=== PATIENT | male | born 1980 | race Two or more races ===

== ENCOUNTER 2021-10-29 21:12 | Inpatient (IN) | payer OTHER ==
[~2021-10-29] VITALS: Ht 157.5 cm; Wt 50.5 kg
--- NOTE | 2021-10-29 21:15 | NUR ---
TERESO 89 FROM [facility] WITH C/O CHEST PAIN X 1 MONTH "POINTING AT EPIGASTRIC AREA" PT A/OX4. TOLERATING O2 2LPM VIA N/C WELL WITH NO SOB; RESP EVEN AND NON LABORED. CONNECTED PT TO POX AND MONITOR. SAFETY MEASURES IN PLACE.
--- NOTE | 2021-10-29 21:33 | NUR ---
ASH WORKER AT PT'S BEDSIDE
--- NOTE | 2021-10-29 21:52 | NUR ---
R WRIST #18G S/L BLOOD COLLECRED AND SENT TO LAB
--- NOTE | 2021-10-29 22:02 | NUR ---
EMT AT PT'S BEDSIDE
[2021-10-29 22:21] LABS: BASOPHILS % (AUTO) 0.3 % (0.0-2.0); EOSINOPHILS % (AUTO) 0.4 % (0.0-6.0); HEMATOCRIT 31 % (39-51); HEMOGLOBIN 9.9 g/dL (13.5-17.5); LYMPHOCYTES # (AUTO) 0.6 K/uL (0.8-4.8); LYMPHOCYTES % (AUTO) 16.4 % (20.0-44.0); MEAN CORPUSCULAR HGB CONC 32 g/dl (31.0-36.0); MEAN CORPUSCULAR VOLUME 77 fL (80-96); MONOCYTES # (AUTO) 0.2 K/uL (0.1-1.30); MONOCYTES % (AUTO) 4.5 % (2.0-12.0); NEUTROPHILS % (AUTO) 78.4 % (43.0-81.0); PLATELET COUNT (AUTO) 575 K/uL (150-450); RED BLOOD CELL COUNT(AUTO) 3.99 MIL/uL (4.5-6.0); WHITE BLOOD COUNT (AUTO) 3.8 K/uL (4.3-11.0)
[2021-10-29] MEDS ORDERED: IV NS 0.9% 1,000 ML BAG IV ONE (22:30)
[2021-10-29] MEDS ORDERED: ASPIRIN 81 MG TAB.CHEW PO ONE (22:30)
[2021-10-29] MEDS ORDERED: ASPIRIN 81 MG TAB.CHEW ONE (22:37)
[2021-10-29 22:44] LABS: CALCIUM, SERUM 8.8 mg/dL (8.5-10.1); CARBON DIOXIDE 28 mmol/L (21-32); CHLORIDE 97 mmol/L (98-107); CREATININE 0.5 mg/dL (0.6-1.3); GLUCOSE 104 mg/dL (74-106); POTASSIUM 3.6 mmol/L (3.5-5.1); SODIUM SERUM 131 mmol/L (136-145); UREA NITROGEN, BLOOD 10 mg/dL (7-18)
--- NOTE | 2021-10-29 23:02 | NUR ---
LAC #18G S/L BLOOD CX AND COVID ANTIGEN SWAB COLLECTED AND SENT TO LAB
--- NOTE | 2021-10-29 23:03 | NUR ---
PT TAKEN TO CT VIA HI
[2021-10-29] MEDS ORDERED: IV NS 0.9% 250 ML IV ONE (23:10)
[2021-10-29] MEDS ORDERED: IOHEXOL-350 100 ML VIAL IV ONE (23:10)
[2021-10-29] MEDS ORDERED: CT SWABBABLE VALVE TRANS SET 1 EA INFUS.SET MC ONE (23:10)
--- NOTE | 2021-10-29 23:27 | NUR ---
BACK FROM CT
--- NOTE | 2021-10-29 23:59 | NUR ---
SACRAL WOUND CX COLLECTED AND SENT. DR. ORDONEZ ASSESSED WOUND. REPOSITIONED PT.
[2021-10-30] VITALS (90 sets, daily range): BP systolic 86–112; BP diastolic 52–81
[2021-10-30] MEDS ORDERED: NOREPINEPHRINE 8 MG in IV NS 0.9% 250 ML IV ONE ×2
[2021-10-30] MEDS ORDERED: NOREPINEPHRINE 4 MG/4 ML AMPUL IV ONE (00:05)
--- NOTE | 2021-10-30 00:20 | NUR ---
LEVOPHED DRIP INITIATED LEVOPHED AT 0.1MCG/KG/MIN. BP 88/60. HR 60. WILL REASSESS BP
[2021-10-30 00:25] LABS: ALANINE AMINOTRANSFERASE 40 U/L (12-78); ALBUMIN 1.8 g/dL (3.4-5.0); ALKALINE PHOSPHATASE 353 U/L (46-116); ASPARTATE AMINOTRANSFERASE 23 U/L (15-37); BILIRUBIN,DIRECT 0.1 mg/dL (0.0-0.2); BILIRUBIN,TOTAL 0.2 mg/dL (0.2-1.0); TOTAL PROTEIN, SERUM 7.5 g/dL (6.4-8.2)
--- NOTE | 2021-10-30 00:28 | NUR ---
BP CHECK: 99/70. HR 101 WILL CONT LEVOPHED AT 0.1 MCG/KG/MIN
--- NOTE | 2021-10-30 00:30 | NUR ---
ICU 255
--- NOTE | 2021-10-30 00:35 | NUR ---
REPORT GIVEN TO FERNANDEZ SALES AGENT FINANCIAL REPORT SERVICE FOR [facility]
--- NOTE | 2021-10-30 00:36 | NUR ---
GARCÍA JACKSON AT PT'S BEDSIDE
[2021-10-30] MEDS ORDERED: MIDO10TA PO (00:45)
[2021-10-30] MEDS ORDERED: ZINC220C6 PO (00:45)
[2021-10-30] MEDS ORDERED: FURO20TA4 PO (00:45)
[2021-10-30] MEDS ORDERED: FERR325T23 PO (00:45)
[2021-10-30] MEDS ORDERED: ASCO500T21 PO (00:45)
[2021-10-30] MEDS ORDERED: NYST15CR TP (00:45)
[2021-10-30] MEDS ORDERED: METO-357 PO (00:45)
[2021-10-30] MEDS ORDERED: COLL30OI TP (00:45)
[2021-10-30] MEDS ORDERED: ZINC220T3 PO (00:45)
--- NOTE | 2021-10-30 00:50 | NUR ---
LARGE INCONTINENT BM NOTED. URINE OUTPUT 200ML VIA URINAL. PT KEPT CLEAN AND DRY. WOUND CARE DONE TO SACRAL WOUND. REPOSITIONED PT.
--- NOTE | 2021-10-30 00:55 | NUR ---
SENIOR FACILITIES MANAGER AT PT'S BEDSIDE
[2021-10-30] MEDS ORDERED: CEFTRIAXONE 1GM BAG (ER ONLY) 1 GM/50 ML PIGGYBACK IV ONE (01:00)
[2021-10-30] MEDS ORDERED: ONDANSETRON HCL/PF 4 MG/2 ML VIAL IVP PRN (01:00)
[2021-10-30] MEDS ORDERED: MAGNESIUM HYDROXIDE 30 ML UDC PO PRN (01:00)
[2021-10-30] MEDS ORDERED: MAG HYDROX/AL HYDROX/SIMETH 30 ML UDC PO PRN (01:00)
[2021-10-30] MEDS ORDERED: VANCOMYCIN 1 GM in IV D5W 250 ML IV ONE (01:00)
[2021-10-30] MEDS ORDERED: Z GUARD REMEDY 4 OZ OINT TP PRN (01:00)
[2021-10-30] MEDS ORDERED: ACETAMINOPHEN 325 MG TABLET PO PRN (01:00)
[2021-10-30] MEDS ORDERED: NYSTATIN CREAM 15 GM TUBE TP SCH (01:00)
[2021-10-30] MEDS ORDERED: ZOLPIDEM TARTRATE 5 MG TABLET PO PRN (01:00)
[2021-10-30] MEDS ORDERED: MEROPENEM 1 G VIAL IV ONE (01:14)
[2021-10-30] MEDS ORDERED: CEFTRIAXONE 1GM BAG (ER ONLY) 50 ML IV ONE (01:29)
[2021-10-30] MEDS ORDERED: VANCOMYCIN 1 GM VIAL ONE (01:29)
[2021-10-30] MEDS ORDERED: IV NS 0.9% 250 ML IV PRN (01:30)
--- NOTE | 2021-10-30 01:30 | NUR ---
MRSA SWAB COLLECTED AND SENT TO LAB. PATIENT'S BELONGINGS LIST DONE.
[2021-10-30] MEDS: MEROPENEM 1 G in IV NS 0.9% 100 ML IV SCH ×4 (01:42→20:56)
--- NOTE | 2021-10-30 01:45 | NUR ---
PT STRONGLY REFUSED TO CHANGE INTO GOWN. TRANSFERRED PT TO ICU VIA ACLS PROTOCOL WITH LEVOPHED TRIP # 0.1MCG/KG/MIN. ALL BELONGINGS WITH PT. ENDORSED FLEET MANAGER TO ADMIN VANCOMYCIN AND GIVEN TO FLEET MANAGER
[2021-10-30] MEDS ORDERED: PANT40TA49 PO (01:53)
[2021-10-30] MEDS ORDERED: NYST5ORA MM (01:53)
[2021-10-30] MEDS ORDERED: [UNRECOGNIZED DRUG - CODE] PO (01:53)
[2021-10-30] MEDS ORDERED: HYDR200T4 PO (01:53)
[2021-10-30] MEDS ORDERED: SODI1TAB PO (01:53)
[2021-10-30] MEDS ORDERED: LEVO100T9 PO (01:53)
[2021-10-30] MEDS ORDERED: HYDROXYCHLOROQUINE 200 MG TABLET PO PRN (02:00)
[2021-10-30] MEDS: NOREPINEPHRINE 8 MG in IV NS 0.9% 242 ML IV PRN ×2 (02:02→20:57)
[2021-10-30] MEDS: HYDROCORTISONE SOD SUCCINATE 100 MG/2 ML VIAL IV SCH ×3 (05:31→20:57)
[2021-10-30] MEDS: LEVOTHYROXINE SODIUM 100 MCG TABLET PO SCH (07:48)
--- NOTE | 2021-10-30 08:00 | NUR ---
rn notes received patient resting in the bed on O2-2LNC. patient a/ox4, refused pain. HR-120. due medication administered , patient on Levophed 0.1 mcg/kg/min. Due medication administered , patient using urinal, also need minimal daily care assist. Assist turn and reposition q 2 hr. patient has sacral wound with tunnelling, seen patient via wound PA, patient sign consent form for debridement. call light within to reach. will follow up.
[2021-10-30] MEDS ORDERED: FERROUS SULFATE (325 MG) 325 MG/TAB TABLET PO SCH (09:00)
[2021-10-30] MEDS ORDERED: METOPROLOL SUCCINATE 50 MG TAB.SR.24H PO SCH (09:00)
[2021-10-30] MEDS ORDERED: MIDODRINE HCL (5MG) 5 MG TABLET PO SCH (09:00)
[2021-10-30] MEDS: THERAHONEY GEL 1.5 OZ TUBE TP SCH (09:16)
[2021-10-30] MEDS: NYSTATIN (PYXIS) 500,000 UNIT/5 ML ORAL.SUSP PO SCH ×5 (09:19→20:57)
[2021-10-30] MEDS: PANTOPRAZOLE 40 MG TABLET.DR PO SCH (09:19)
[2021-10-30] MEDS: ASCORBIC ACID 500 MG TABLET PO SCH (09:19)
[2021-10-30] MEDS: ASPIRIN 81 MG TAB.CHEW PO SCH (09:20)
[2021-10-30 09:47] LABS: IRON, SERUM 10 ug/dl (50-175); TOTAL IRON BINDING CAPACITY 168 ug/dl (250-450)
[2021-10-30] MEDS ORDERED: ACET-868 PO (10:18)
[2021-10-30] MEDS ORDERED: CHOL100043 PO (10:18)
[2021-10-30] MEDS ORDERED: MULT-24 PO (10:18)
[2021-10-30] MEDS ORDERED: MAGN400O6 PO (10:18)
[2021-10-30] MEDS ORDERED: AMIN30LI2 PO (10:18)
[2021-10-30] MEDS ORDERED: SODI1TAB66 PO (10:18)
[2021-10-30] MEDS ORDERED: CALC500T52 PO (10:18)
[2021-10-30] MEDS ORDERED: ACET-2605 PO (10:18)
[2021-10-30] MEDS ORDERED: CYAN100096 PO (10:18)
[2021-10-30] MEDS ORDERED: HYDR-4303 PO (10:18)
--- NOTE | 2021-10-30 12:00 | NUR ---
rn notes patient tolerated lunch self well, per case management patient will transfer to the [facility].
[2021-10-30 12:08] LABS: FERRITIN 413 ng/mL (8-388)
[2021-10-30] MEDS: HYDROXYCHLOROQUINE 200 MG TABLET PO SCH (12:09)
[2021-10-30] MEDS: MIDODRINE HCL (5MG) 5 MG TABLET PO SCH ×2 (12:11→16:26)
[2021-10-30] MEDS ORDERED: MEROPENEM 1 G in IV NS 0.9% 100 ML IV SCH (13:00)
[2021-10-30] MEDS: VANCOMYCIN 0.75 GM in IV D5W 250 ML IV SCH (13:37)
--- NOTE | 2021-10-30 18:20 | NUR ---
RN NOTES PM CARE DONE PATIENT REFUSED PAIN, DUE MEDICATION ADMINISTERED. TITRATED LEVOPHED INFUSION @0.02MCG/KG/MIN, BP 92/67. PATIENT ABLE TO TURN AND REPOSTION SELF IN THE BED. CALL LIGHT WITHIN TO REACH. ENDORSED ONCOMING NURSE [facility].
[2021-10-31] VITALS (77 sets, daily range): BP systolic 88–129; BP diastolic 46–79
[2021-10-31] MEDS: VANCOMYCIN 0.75 GM in IV D5W 250 ML IV SCH ×2 (02:05→14:50)
[2021-10-31 04:17] LABS: BASOPHILS % (AUTO) 0.2 % (0.0-2.0); EOSINOPHILS % (AUTO) 0.1 % (0.0-6.0); HEMATOCRIT 28 % (39-51); HEMOGLOBIN 9.1 g/dL (13.5-17.5); LYMPHOCYTES # (AUTO) 0.4 K/uL (0.8-4.8); LYMPHOCYTES % (AUTO) 15.2 % (20.0-44.0); MEAN CORPUSCULAR HGB CONC 32 g/dl (31.0-36.0); MEAN CORPUSCULAR VOLUME 77 fL (80-96); MONOCYTES # (AUTO) 0.2 K/uL (0.1-1.30); NEUTROPHILS # (AUTO) 2.1 K/uL (1.8-8.9); NEUTROPHILS % (AUTO) 75.5 % (43.0-81.0); PLATELET COUNT (AUTO) 595 K/uL (150-450); RED BLOOD CELL COUNT(AUTO) 3.71 MIL/uL (4.5-6.0); WHITE BLOOD COUNT (AUTO) 2.7 K/uL (4.3-11.0)
[2021-10-31 04:26] LABS: CALCIUM, SERUM 8.1 mg/dL (8.5-10.1); CREATININE 0.6 mg/dL (0.6-1.3); MAGNESIUM 1.8 mg/dL (1.8-2.4); PHOSPHORUS 3.1 mg/dL (2.5-4.9); POTASSIUM 3.4 mmol/L (3.5-5.1)
[2021-10-31] MEDS: HYDROCORTISONE SOD SUCCINATE 100 MG/2 ML VIAL IV SCH ×3 (04:56→21:47)
[2021-10-31] MEDS: MEROPENEM 1 G in IV NS 0.9% 100 ML IV SCH ×3 (04:56→21:47)
--- NOTE | 2021-10-31 08:00 | NUR ---
RN NOTES received patient A/A/O X4, O2-2LNC. patient a/ox4, HR-91. due medication administered, Due medication administered , patient using urinal, also need minimal daily care assist. Assist turn and reposition q 2 hr. patient has sacral wound with tunnelling, seen patient via wound, and hospitalist patient will transfer to the [facility] per insurance request. case management aware of. call light within to reach. will follow up.
[2021-10-31] MEDS: HYDROXYCHLOROQUINE 200 MG TABLET PO SCH (09:50)
[2021-10-31] MEDS: MIDODRINE HCL (5MG) 5 MG TABLET PO SCH ×3 (09:50→17:03)
[2021-10-31] MEDS: ASPIRIN 81 MG TAB.CHEW PO SCH (09:50)
[2021-10-31] MEDS: NYSTATIN (PYXIS) 500,000 UNIT/5 ML ORAL.SUSP PO SCH ×4 (09:50→21:47)
[2021-10-31] MEDS: POTASSIUM CHLORIDE 20 MEQ TAB.PRT.SR PO SCH ×2 (09:51→10:00)
[2021-10-31] MEDS: ASCORBIC ACID 500 MG TABLET PO SCH (09:51)
[2021-10-31] MEDS: PANTOPRAZOLE 40 MG TABLET.DR PO SCH (09:51)
[2021-10-31] MEDS: THERAHONEY GEL 1.5 OZ TUBE TP SCH (09:52)
[2021-10-31] MEDS: LEVOTHYROXINE SODIUM 100 MCG TABLET PO SCH (09:52)
--- NOTE | 2021-10-31 14:12 | NUR ---
RN NOTES COLLECTED SPECIMEN FROM SACRAL WOUND. LAB NOTIFIED.
--- NOTE | 2021-10-31 14:30 | NUR ---
rn notes patient was complaining of chest pain, and per patient also increased sputum as well, keep spitting out. notified Dr Ba and get TO order STAT EKG, CHEST X-RAY tomorrow, because of patient was admitted with Dx of chest pain , also STAT troponin level. order taken and carried out.
[2021-10-31] MEDS: SOD FERRIC GLUC 125 MG in IV NS 0.9% 100 ML IV SCH (15:13)
--- NOTE | 2021-10-31 15:38 | NUR ---
rn notes EKG, AND TROPONIN LEVEL RESULTS NOTIFIED HOSPITALIST Dr JORGE, AND Dr CASTRO SALES AGENT [employer]. WAITING FOR RESPOND.
--- NOTE | 2021-10-31 15:41 | NUR ---
RN NOTES PATIENT MORE STABLE AT THIS TIME , CHEST PAIN GETTING BETTER, BP 94/65, P-94. GET ORDER PER TOYS AND GAMES HAND FINISHER FOLLOW UP. ORDER TAKEN AND CARRIED OUT.
--- NOTE | 2021-10-31 17:00 | NUR ---
rn notes patient stable refused chest pain, tolerated dinner 100%, due medication administered. new order is transfer patient to the tele unit. waiting available bed opening.
--- NOTE | 2021-10-31 18:24 | NUR ---
rn notes Get call from [facility] patient mrsa of nares previous specimen was contaminated. recollected new mrsa on narea specimen, lab notified to pickers material handlers.
--- NOTE | 2021-10-31 19:35 | NUR ---
ICU/PRIMER EXPEDITOR AND DRIER RECEIVED REPORT FROM DAY NURSE. SEE FLOWSHEET FOR ASSESSMENT, PT HAS SKIN ISSUES WHICH IS ADDRESSED ON THE FLOWSHEET, ALONG WITH THE INTERVENTIONS TO EACH. CALL LIGHT WITHIN REACH, NO DISTRESS SEEN AT THIS TIME. WILL CONTINUE TO MO MONITOR THIS PT.
--- NOTE | 2021-10-31 19:45 | NUR ---
ICU/BUYER PLANNER REPORT GIVEN TO KEVAN HINOJOSA ON 3WEST FOR PT TO GO INTO ROOM 328-1.
[2021-10-31] MEDS ORDERED: ACETAMINOPHEN 325 MG TABLET PO PRN (20:30)
[2021-10-31] MEDS ORDERED: MAGNESIUM HYDROXIDE 30 ML UDC PO PRN (20:30)
[2021-10-31] MEDS ORDERED: ACETAMINOPHEN ES 500 MG TABLET PO PRN (20:30)
--- NOTE | 2021-10-31 20:55 | NUR ---
ICU/PARTS EXPEDITER PT WAS TRANSFERED TO ROOM 328-1, 3-W NURSE KEVAN HINOJOSA CAME DOWN TO GET PT. PT WAS SENT ON MONITOR.
--- NOTE | 2021-10-31 21:03 | NUR ---
TRANSFER NOTES PT TRANSFERRED @2100 TO 328-1. HEMODYNAMICALLY STABLE. WILL CONTINUE TO MONITOR.
[2021-11-01] VITALS: BP 92/68
[2021-11-01] MEDS: VANCOMYCIN 0.75 GM in IV D5W 250 ML IV SCH ×3 (01:28→20:24)
[2021-11-01] MEDS: MEROPENEM 1 G in IV NS 0.9% 100 ML IV SCH ×3 (05:44→21:35)
[2021-11-01] MEDS: HYDROCORTISONE SOD SUCCINATE 100 MG/2 ML VIAL IV SCH ×3 (05:44→21:35)
[2021-11-01 06:37] LABS: BASOPHILS % (AUTO) 0.2 % (0.0-2.0); HEMATOCRIT 29 % (39-51); HEMOGLOBIN 9.3 g/dL (13.5-17.5); LYMPHOCYTES # (AUTO) 0.6 K/uL (0.8-4.8); LYMPHOCYTES % (AUTO) 34.8 % (20.0-44.0); MEAN CORPUSCULAR HGB CONC 32 g/dl (31.0-36.0); MEAN CORPUSCULAR VOLUME 77 fL (80-96); MONOCYTES # (AUTO) 0.2 K/uL (0.1-1.30); MONOCYTES % (AUTO) 9.7 % (2.0-12.0); NEUTROPHILS % (AUTO) 55.3 % (43.0-81.0); PLATELET COUNT (AUTO) 581 K/uL (150-450); RED BLOOD CELL COUNT(AUTO) 3.73 MIL/uL (4.5-6.0)
[2021-11-01 06:48] LABS: WHITE BLOOD COUNT (AUTO) 1.8 K/uL (4.3-11.0)
--- NOTE | 2021-11-01 06:49 | NUR ---
RN NOTES RECEIVED CRITICAL LAB VALUE FOR WBC OF 1.8. WILL ENDORSE TO DAYSHIFT RN.
[2021-11-01 07:19] LABS: CALCIUM, SERUM 8.2 mg/dL (8.5-10.1); CREATININE 0.5 mg/dL (0.6-1.3); PHOSPHORUS 2.6 mg/dL (2.5-4.9); POTASSIUM 3.9 mmol/L (3.5-5.1)
--- NOTE | 2021-11-01 07:54 | NUR ---
RN CLOSING NOTES REPORT GIVEN TO DAYSHIFT RN. PT STABLE. NO DISTRESS NOTED.
[2021-11-01 08:00] VITALS: BP 96/69
--- NOTE | 2021-11-01 08:00 | NUR ---
RN OPENING NOTE PATIENT RECEIVED IN BED, AO X 4, ABLE TO RESPONDS ALL STIMULI. IN NO ACUTE DISTRESS NOTED. RESPIRATORY EVEN AND UNLABORED ON OXYGEN AT 3Ls. SKIN IS WARM TO TOUCH, KEEP CLEAN/DRY. KEPT ELEVATED HOB FOR ENSURE AIRWAY AND ASPIRATION PRECAUTION, ALSO LOWEST POSITION OF THE BED, S/R UP X 3, BED ALARM IS ON AT ALL THE TIMES. ALL SAFETY PRECAUTION APPLIED. CALL LIGHT WITHIN REACH, WILL CONTINUE TO MONITOR.
[2021-11-01] MEDS: LEVOTHYROXINE SODIUM 100 MCG TABLET PO SCH (08:27)
[2021-11-01] MEDS: NYSTATIN (PYXIS) 500,000 UNIT/5 ML ORAL.SUSP PO SCH ×4 (08:29→21:35)
[2021-11-01] MEDS: MULTIVITAMINS,THERAGRAN 1 UDTAB TABLET PO SCH (08:29)
[2021-11-01] MEDS: ASCORBIC ACID 500 MG TABLET PO SCH (08:29)
[2021-11-01 08:30] LABS: LYMPHOCYTES % (MANUAL) 31 % (16-48); NEUTROPHILS % (MANUAL) 62 (42-76)
--- NOTE | 2021-11-01 08:30 | NUR ---
PATIENT NOTICED WBC 1.8 CL THIS MORNING, INFORMED MD AND FILL IT OUT ON INTERVENTION. WILL CONTINUE TO MONITOR.
[2021-11-01 08:31] LABS: BASOPHILS % (MANUAL) 0 % (0.0-2.0); EOSINOPHILS % (MANUAL) 0 % (0-4); MONOCYTES % (MANUAL) 7 % (0-11.0)
[2021-11-01] MEDS: FUROSEMIDE 20 MG TABLET PO SCH (08:31)
[2021-11-01] MEDS: ASPIRIN 81 MG TAB.CHEW PO SCH (08:31)
[2021-11-01] MEDS: MIDODRINE HCL (5MG) 5 MG TABLET PO SCH ×3 (08:31→16:34)
[2021-11-01] MEDS: CALCIUM CARBONATE (1250) 500 MG TABLET PO SCH (08:31)
[2021-11-01] MEDS: THERAHONEY GEL 1.5 OZ TUBE TP SCH (08:33)
[2021-11-01] MEDS: PANTOPRAZOLE 40 MG TABLET.DR PO SCH (08:36)
[2021-11-01] MEDS: HYDROXYCHLOROQUINE 200 MG TABLET PO SCH (08:36)
--- NOTE | 2021-11-01 10:30 | NUR ---
PATIENT REFUSED THORACENTESIS, INFORMED DR. POTTS.
[2021-11-01 12:00] VITALS: BP 102/77
[2021-11-01] MEDS: SOD FERRIC GLUC 125 MG in IV NS 0.9% 100 ML IV SCH (16:16)
[2021-11-01 17:18] VITALS: BP 102/70
--- NOTE | 2021-11-01 18:39 | NUR ---
RN CLOSING NOTE PATIENT IN BED RESTING. IN NO ACUTE DISTRESS NOTED. RESPIRATORY EVEN AND UNLABORED ON OXYGEN AT 2Ls. SKIN IS WARM TO TOUCH, KEEP CLEAN/DRY. NO S/S OF ADVERSE REACTION OBSERVED FROM IV ABX. ENCOURAGED ORAL FLUID INTAKE TOLERATED. KEPT ELEVATED HOB FOR ENSURE AIRWAY AND ASPIRATION PRECAUTION, BED IN LOWEST POSITION AND LOCK. BED ALARM IS ON AT ALL THE TIMES. ALL SAFETY MEASURED IN PLACED. CALL LIGHT WITHIN REACH, WILL ENDORSED TO NEXT SHIFT.
--- NOTE | 2021-11-01 19:30 | NUR ---
RN OPENING NOTE RECEIVED PATIENT IN BED, A/OX4, NO S/S OF ACUTE DISTRESS NOTED. 02 VIA NC @2L, PATIENT IS ON TELE MONITOR BUT WE REMOVED IT FOR LIFE VEST MEASUREMENTS. ENCOURAGED ORAL FLUID INTAKE TOLERATED. KEPT ELEVATED HOB FOR ENSURE AIRWAY AND ASPIRATION PRECAUTION, BED IN LOWEST POSITION AND LOCK. BED ALARM IS ON AT ALL THE TIMES. ALL SAFETY MEASURED IN PLACED. CALL LIGHT WITHIN REACH, WILL ENDORSED TO NEXT SHIFT.
[2021-11-01 20:00] VITALS: BP 94/67
[2021-11-02] VITALS: BP 104/80
[2021-11-02 04:00] VITALS: BP 93/63
[2021-11-02] MEDS: VANCOMYCIN 0.75 GM in IV D5W 250 ML IV SCH ×3 (04:26→21:41)
[2021-11-02] MEDS: MEROPENEM 1 G in IV NS 0.9% 100 ML IV SCH ×3 (05:27→20:58)
[2021-11-02] MEDS: HYDROCORTISONE SOD SUCCINATE 100 MG/2 ML VIAL IV SCH ×3 (05:28→20:58)
[2021-11-02] MEDS: LEVOTHYROXINE SODIUM 100 MCG TABLET PO SCH (06:41)
--- NOTE | 2021-11-02 06:49 | NUR ---
RN CLOSING NOTE PATIENT IS RESTING IN BED, A/OX4, O2 2L VIA NC, TOLERATING WELL. NO S/S OF RESP DISTRESS NOTED, TELE MONITOR READING SR HR 95, KEPT HOB ELEVATED FOR ASPIRATION PRECAUTION, ALL DUE MEDS GIVEN, PATEINT ABLE TO MAKE NEEDS KNOWN, BED IN LOWEST POSITION AND LOCK. BED ALARM IS ON AT ALL THE TIMES. ALL SAFETY MEASURED IN PLACED. CALL LIGHT WITHIN REACH, WILL ENDORSED TO MORNING SHIFT.
[2021-11-02 06:51] LABS: BASOPHILS % (AUTO) 0.3 % (0.0-2.0); HEMATOCRIT 29 % (39-51); HEMOGLOBIN 9.2 g/dL (13.5-17.5); LYMPHOCYTES # (AUTO) 0.6 K/uL (0.8-4.8); LYMPHOCYTES % (AUTO) 26.9 % (20.0-44.0); MEAN CORPUSCULAR HGB CONC 32 g/dl (31.0-36.0); MEAN CORPUSCULAR VOLUME 78 fL (80-96); MONOCYTES # (AUTO) 0.3 K/uL (0.1-1.30); MONOCYTES % (AUTO) 14.5 % (2.0-12.0); NEUTROPHILS # (AUTO) 1.3 K/uL (1.8-8.9); NEUTROPHILS % (AUTO) 58.3 % (43.0-81.0); PLATELET COUNT (AUTO) 594 K/uL (150-450); RED BLOOD CELL COUNT(AUTO) 3.74 MIL/uL (4.5-6.0); WHITE BLOOD COUNT (AUTO) 2.2 K/uL (4.3-11.0)
[2021-11-02 07:29] LABS: CREATININE 0.5 mg/dL (0.6-1.3); PHOSPHORUS 2.1 mg/dL (2.5-4.9); POTASSIUM 3.1 mmol/L (3.5-5.1)
--- NOTE | 2021-11-02 08:00 | NUR ---
RN OPENING NOTE PATIENT RECEIVED IN BED, AO X 4, ABLE TO RESPONDS ALL STIMULI. IN NO ACUTE DISTRESS NOTED. RESPIRATORY EVEN AND UNLABORED ON OXYGEN AT 2Ls. SKIN IS WARM TO TOUCH, KEEP CLEAN/DRY. KEPT ELEVATED HOB FOR ENSURE AIRWAY AND ASPIRATION PRECAUTION, ALSO LOWEST POSITION OF THE BED, S/R UP X 3, BED ALARM IS ON AT ALL THE TIMES. ALL SAFETY PRECAUTION APPLIED. CALL LIGHT WITHIN REACH, WILL CONTINUE TO MONITOR.
[2021-11-02] MEDS: ASPIRIN 81 MG TAB.CHEW PO SCH (09:51)
[2021-11-02] MEDS: ASCORBIC ACID 500 MG TABLET PO SCH (09:52)
[2021-11-02] MEDS: CALCIUM CARBONATE (1250) 500 MG TABLET PO SCH (09:52)
[2021-11-02] MEDS: MIDODRINE HCL (5MG) 5 MG TABLET PO SCH ×3 (09:52→17:11)
[2021-11-02] MEDS: PANTOPRAZOLE 40 MG TABLET.DR PO SCH (09:52)
[2021-11-02] MEDS: FUROSEMIDE 20 MG TABLET PO SCH (09:52)
[2021-11-02] MEDS: NYSTATIN (PYXIS) 500,000 UNIT/5 ML ORAL.SUSP PO SCH ×4 (09:52→20:58)
[2021-11-02] MEDS: MULTIVITAMINS,THERAGRAN 1 UDTAB TABLET PO SCH (09:52)
[2021-11-02] MEDS: THERAHONEY GEL 1.5 OZ TUBE TP SCH (09:54)
[2021-11-02] MEDS: HYDROXYCHLOROQUINE 200 MG TABLET PO SCH (09:56)
[2021-11-02] MEDS: POTASSIUM CHLORIDE 20 MEQ TAB.PRT.SR PO SCH ×2 (10:01→11:31)
[2021-11-02] MEDS ORDERED: K PHOS NEUTRAL 250 MG TABLET PO ONE (11:00)
[2021-11-02] MEDS: SOD FERRIC GLUC 125 MG in IV NS 0.9% 100 ML IV SCH (15:38)
--- NOTE | 2021-11-02 16:40 | NUR ---
RECEIVED A REPORT THAT PATIENT POSITIVE MRSA BY [facility]. INFORMED MD AND NEW ORDER; APPLY BACTROBAN ON BOTH NARES Q 12. WILL CONTINUE TO MONITOR.
--- NOTE | 2021-11-02 18:40 | NUR ---
RN CLOSING NOTE PATIENT IN BED RESTING. S/P THORACENTESIS, 250 CC OUT PUT, IN NO ACUTE DISTRESS NOTED. RESPIRATORY EVEN AND UNLABORED ON OXYGEN AT 2Ls. SKIN IS WARM TO TOUCH, KEEP CLEAN/DRY. NO S/S OF ADVERSE REACTION OBSERVED FROM IV ABX. ENCOURAGED ORAL FLUID INTAKE TOLERATED. KEPT ELEVATED HOB FOR ENSURE AIRWAY AND ASPIRATION PRECAUTION, BED IN LOWEST POSITION AND LOCK. BED ALARM IS ON AT ALL THE TIMES. ALL SAFETY MEASURED IN PLACED. CALL LIGHT WITHIN REACH, WILL ENDORSED TO NEXT SHIFT.
--- NOTE | 2021-11-02 19:26 | NUR ---
RN OPENING NOTE PATIENT IN BED RESTING. S/P THORACENTESIS, 250 CC OUT PUT, IN NO ACUTE DISTRESS NOTED. RESPIRATORY EVEN AND UNLABORED ON OXYGEN AT 2Ls. SKIN IS WARM TO TOUCH, KEEP CLEAN/DRY. ENCOURAGED ORAL FLUID INTAKE TOLERATED. KEPT ELEVATED HOB FOR ENSURE AIRWAY AND ASPIRATION PRECAUTION, BED IN LOWEST POSITION AND LOCK. PT WITH LIFE VEST ON AT THIS TIME. BED ALARM IS ON AT ALL THE TIMES. ALL SAFETY MEASURED IN PLACED. CALL LIGHT WITHIN REACH, WILL CONTINUE TO MONITOR.
[2021-11-02 20:29] VITALS: BP 116/80
[2021-11-02 20:36] VITALS: BP 116/80
[2021-11-02] MEDS: MUPIROCIN OINT 2% 22 GM TUBE NS SCH (21:33)
--- NOTE | 2021-11-02 21:33 | NUR ---
LAB INSTRUCTOR NOTES VANCO LEVEL IS 10 OKAY TO GIVE VANCO DOSE SCHEDULED. WILL CONTINUE TO MONITOR.
[2021-11-03 00:05] VITALS: BP 104/70
[2021-11-03 04:00] VITALS: BP 109/72
[2021-11-03] MEDS: VANCOMYCIN 0.75 GM in IV D5W 250 ML IV SCH ×3 (04:04→20:54)
[2021-11-03] MEDS: HYDROCORTISONE SOD SUCCINATE 100 MG/2 ML VIAL IV SCH ×3 (04:04→20:55)
[2021-11-03] MEDS: MEROPENEM 1 G in IV NS 0.9% 100 ML IV SCH ×3 (05:00→21:10)
--- NOTE | 2021-11-03 06:38 | NUR ---
RN OPENING NOTE PATIENT IN BED RESTING. S/P THORACENTESIS, 250 CC OUT PUT, IN NO ACUTE DISTRESS NOTED. RESPIRATORY EVEN AND UNLABORED ON OXYGEN AT 2Ls. SKIN IS WARM TO TOUCH, KEEP CLEAN/DRY. ENCOURAGED ORAL FLUID INTAKE TOLERATED. KEPT ELEVATED HOB FOR ENSURE AIRWAY AND ASPIRATION PRECAUTION, BED IN LOWEST POSITION AND LOCK. PT WITH LIFE VEST ON AT THIS TIME. BED ALARM IS ON AT ALL THE TIMES. ALL SAFETY MEASURED IN PLACED. CALL LIGHT WITHIN REACH, WILL CONTINUE TO MONITOR. Addendum: 11/03/21 at 0639 by MARLEY VANG RN CLOSING NOTE
[2021-11-03 07:15] LABS: BASOPHILS % (AUTO) 0.1 % (0.0-2.0); HEMATOCRIT 30 % (39-51); HEMOGLOBIN 9.7 g/dL (13.5-17.5); LYMPHOCYTES # (AUTO) 0.6 K/uL (0.8-4.8); LYMPHOCYTES % (AUTO) 7.4 % (20.0-44.0); MEAN CORPUSCULAR HGB CONC 33 g/dl (31.0-36.0); MEAN CORPUSCULAR VOLUME 77 fL (80-96); MONOCYTES # (AUTO) 0.4 K/uL (0.1-1.30); MONOCYTES % (AUTO) 5.6 % (2.0-12.0); NEUTROPHILS # (AUTO) 6.5 K/uL (1.8-8.9); NEUTROPHILS % (AUTO) 86.9 % (43.0-81.0); PLATELET COUNT (AUTO) 612 K/uL (150-450); RED BLOOD CELL COUNT(AUTO) 3.85 MIL/uL (4.5-6.0); WHITE BLOOD COUNT (AUTO) 7.5 K/uL (4.3-11.0)
--- NOTE | 2021-11-03 07:24 | NUR ---
RN OPENING NOTE RECEIVED PATIENT IN BED, A/OX4, NO SIGNS OF ACUTE DISTRESS NOTED. DENIES ANY PAIN AT THIS TIME. ON 02 VIA NC @2LPM, NO SOB NOTED. WITH PICC LINE ACCESS ON RIGHT UPPER ARM, INTACT AND PATENT. PATIENT IS ON TELE MONITOR SHOWING SR HR @99. SAFETY MEASURE IN PLACE, BED IN LOWEST POSITION AND LOCKED POSITION. BED ALARM ON AT ALL THE TIMES. SIDE RAILS UP, CALL LIGHT PLACED WITHIN EASY REACH. ISOLATION PRECAUTIONS OBSERVED. WILL CONTINUE TO MONITOR PATIENT.
[2021-11-03 07:36] LABS: CREATININE 0.4 mg/dL (0.6-1.3); MAGNESIUM 2.5 mg/dL (1.8-2.4); PHOSPHORUS 2.4 mg/dL (2.5-4.9); POTASSIUM 3.1 mmol/L (3.5-5.1)
[2021-11-03 08:00] VITALS: BP 110/74
[2021-11-03] MEDS: LEVOTHYROXINE SODIUM 100 MCG TABLET PO SCH (08:19)
[2021-11-03] MEDS: NYSTATIN (PYXIS) 500,000 UNIT/5 ML ORAL.SUSP PO SCH ×4 (08:58→20:54)
[2021-11-03] MEDS: ASPIRIN 81 MG TAB.CHEW PO SCH (08:58)
[2021-11-03] MEDS: MIDODRINE HCL (5MG) 5 MG TABLET PO SCH ×3 (08:59→16:22)
[2021-11-03] MEDS: CALCIUM CARBONATE (1250) 500 MG TABLET PO SCH (08:59)
[2021-11-03] MEDS: MULTIVITAMINS,THERAGRAN 1 UDTAB TABLET PO SCH (08:59)
[2021-11-03] MEDS: PANTOPRAZOLE 40 MG TABLET.DR PO SCH (08:59)
[2021-11-03] MEDS: FUROSEMIDE 20 MG TABLET PO SCH (08:59)
[2021-11-03] MEDS: ASCORBIC ACID 500 MG TABLET PO SCH (08:59)
[2021-11-03] MEDS: THERAHONEY GEL 1.5 OZ TUBE TP SCH (09:01)
[2021-11-03] MEDS: MUPIROCIN OINT 2% 22 GM TUBE NS SCH ×2 (09:01→20:57)
--- NOTE | 2021-11-03 09:03 | NUR ---
PATIENT ON 2 L NC AWAKE AND ORIENTED. PATIENT REMAIN STABLE W/O DISTRESS Addendum: 11/03/21 at 0903 by CASH HAYS RT Amended: Links added.
[2021-11-03] MEDS: HYDROXYCHLOROQUINE 200 MG TABLET PO SCH (10:36)
[2021-11-03] MEDS ORDERED: POTASSIUM CHLORIDE 20 MEQ TAB.PRT.SR PO SCH (11:00)
[2021-11-03] MEDS: SOD FERRIC GLUC 125 MG in IV NS 0.9% 100 ML IV SCH (14:52)
[2021-11-03 16:00] VITALS: BP 107/77
[2021-11-03] MEDS ORDERED: K PHOS NEUTRAL 250 MG TABLET PO ONE (16:00)
--- NOTE | 2021-11-03 18:44 | NUR ---
RN CLOSING NOTES PATIENT IN BED, AWAKE, A/OX4, NO SIGNS OF ACUTE DISTRESS NOTED. ON LOW FLOW 02 @2LPM VIA N/C, NO SOB NOTED. BREATHING EVEN AND UNLABORED. LIFEVEST ON. WITH PICC LINE ACCESS ON RIGHT UPPER ARM, INTACT AND PATENT. ALL DUE MEDS GIVEN. WOUND TREATMENT DONE. SAFETY MEASURE IN PLACE, BED IN LOWEST POSITION AND LOCKED POSITION. BED ALARM ON AT ALL THE TIMES. SIDE RAILS UP, CALL LIGHT PLACED WITHIN EASY REACH. ISOLATION PRECAUTIONS OBSERVED. WILL ENDORSE TO NEXT SHIFT FOR CONTINUITY OF CARE.
[2021-11-03 20:00] VITALS: BP 107/79
--- NOTE | 2021-11-03 21:25 | NUR ---
MS RN OPENING NOTES: RECEIVED PATIENT AWAKE IN BED, BED IN LOW POSITION CALL LIGHTS WITHIN REACH, NO COMPLAIN OF PAIN AND DISCOMFORT AT THIS TIME, ON O2 INHALATION AT 2LPM SATURATING WELL, PATIENT IS A/O4 ABLE TO MAKE NEEDS KNOWN REMIND TO USE THE CALL LIGHTS WHEN NEEDED ASSISTANCE, PATIENT KEPT CLEAN AND DRY ALL NEEDS MET WILL CONTINUE TO MONITOR.
[2021-11-04] MEDS: VANCOMYCIN 0.75 GM in IV D5W 250 ML IV SCH (04:45)
[2021-11-04] MEDS: HYDROCORTISONE SOD SUCCINATE 100 MG/2 ML VIAL IV SCH ×3 (05:18→21:05)
[2021-11-04] MEDS: MEROPENEM 1 G in IV NS 0.9% 100 ML IV SCH ×3 (05:25→21:05)
--- NOTE | 2021-11-04 06:43 | NUR ---
MS RN CLOSING NOTES; RECEIVED PATIENT AWAKE IN BED, BED IN LOW POSITION CALL LIGHTS WITHIN REACH, NO COMPLAIN OF PAIN AND DISCOMFORT AT THIS TIME ON ROOM AIR SATURATING WELL, WITH IV LINE AT [facility] PICC LINE WITH ONGOING ANTIBIOTIC INFUSING WELL, PATIENT HAS CONNECTED LIFE VEST, KEPT CLEAN AND DRY ALL NEEDS MET ENDORSE TO INCOMING SHIFT.
--- NOTE | 2021-11-04 07:11 | NUR ---
MS RN OPENING NOTES RECEIVED PATIENT AWAKE IN BED, A/Ox4, ON 2L OXYGEN. PATIENT SHOWS NO S/S OF RESPIRATORY DISTRESS. NO C/O OF CARDIAC DISTRESS. IV ACCESS JAIMEE PICC LINE, INTACT AND PATENT. NO S/S OF INFILTRATION. PATIENT IS ON BED REST AND USES URINAL. PATIENT SKIN ISSUES: SACRUM WOUND/REDNESS. LIFE VEST IN PLACE AND FUNCTIONING WELL. SAFETY MEASURES IN PLACE: BED LOCKED AND IN LOWEST POSITION, SIDE RAILS UP x2, CALL LIGHT WITHIN REACH, HOB ELEVATED AND BEDSIDE TABLE WITHIN REACH. WILL CONTINUE TO MONITOR.
[2021-11-04 07:16] LABS: BASOPHILS % (AUTO) 0.1 % (0.0-2.0); EOSINOPHILS % (AUTO) 0.1 % (0.0-6.0); HEMATOCRIT 30 % (39-51); HEMOGLOBIN 9.6 g/dL (13.5-17.5); LYMPHOCYTES # (AUTO) 0.7 K/uL (0.8-4.8); LYMPHOCYTES % (AUTO) 24.5 % (20.0-44.0); MEAN CORPUSCULAR HGB CONC 32 g/dl (31.0-36.0); MEAN CORPUSCULAR VOLUME 77 fL (80-96); MONOCYTES # (AUTO) 0.3 K/uL (0.1-1.30); NEUTROPHILS # (AUTO) 1.8 K/uL (1.8-8.9); NEUTROPHILS % (AUTO) 63.3 % (43.0-81.0); PLATELET COUNT (AUTO) 632 K/uL (150-450); RED BLOOD CELL COUNT(AUTO) 3.86 MIL/uL (4.5-6.0); WHITE BLOOD COUNT (AUTO) 2.8 K/uL (4.3-11.0)
[2021-11-04 08:00] VITALS: BP 115/72
[2021-11-04 08:19] LABS: CREATININE 0.4 mg/dL (0.6-1.3); MAGNESIUM 2.1 mg/dL (1.8-2.4); PHOSPHORUS 2.5 mg/dL (2.5-4.9); POTASSIUM 3.2 mmol/L (3.5-5.1)
[2021-11-04] MEDS: FUROSEMIDE 20 MG TABLET PO SCH (08:20)
[2021-11-04] MEDS: ASCORBIC ACID 500 MG TABLET PO SCH (08:20)
[2021-11-04] MEDS: NYSTATIN (PYXIS) 500,000 UNIT/5 ML ORAL.SUSP PO SCH ×4 (08:20→21:06)
[2021-11-04] MEDS: MULTIVITAMINS,THERAGRAN 1 UDTAB TABLET PO SCH (08:20)
[2021-11-04] MEDS: ASPIRIN 81 MG TAB.CHEW PO SCH (08:20)
[2021-11-04] MEDS: LEVOTHYROXINE SODIUM 100 MCG TABLET PO SCH (08:20)
[2021-11-04] MEDS: CALCIUM CARBONATE (1250) 500 MG TABLET PO SCH (08:20)
[2021-11-04] MEDS: PANTOPRAZOLE 40 MG TABLET.DR PO SCH (08:21)
[2021-11-04] MEDS: MIDODRINE HCL (5MG) 5 MG TABLET PO SCH ×3 (08:25→17:21)
[2021-11-04] MEDS: HYDROXYCHLOROQUINE 200 MG TABLET PO SCH (08:25)
[2021-11-04] MEDS: THERAHONEY GEL 1.5 OZ TUBE TP SCH (08:26)
[2021-11-04] MEDS: MUPIROCIN OINT 2% 22 GM TUBE NS SCH ×2 (08:26→21:06)
[2021-11-04] MEDS ORDERED: POTASSIUM CHLORIDE 20 MEQ TAB.PRT.SR PO SCH (11:00)
[2021-11-04] MEDS: LINEZOLID 600 MG TABLET PO SCH ×2 (11:36→21:06)
[2021-11-04 12:28] LABS: BASOPHILS % (MANUAL) 0 % (0.0-2.0); EOSINOPHILS % (MANUAL) 0 % (0-4); LYMPHOCYTES % (MANUAL) 26 % (16-48); MONOCYTES % (MANUAL) 9 % (0-11.0); NEUTROPHILS % (MANUAL) 65 (42-76)
[2021-11-04] MEDS: SOD FERRIC GLUC 125 MG in IV NS 0.9% 100 ML IV SCH (15:50)
[2021-11-04 16:00] VITALS: BP 113/73
--- NOTE | 2021-11-04 18:43 | NUR ---
MS RN CLOSING NOTES RECEIVED PATIENT AWAKE IN BED, A/Ox4, STABLE ON 2L OXYGEN. PATIENT SHOWS NO S/S OF RESPIRATORY DISTRESS. NO C/O OF CARDIAC DISTRESS. IV ACCESS JAIMEE PICC LINE AND L FA #20G, INTACT AND PATENT. NO S/S OF INFILTRATION. PATIENT IS ON BED REST AND USES URINAL. PATIENT SKIN ISSUES: SACRUM WOUND/REDNESS. LIFE VEST IN PLACE AND FUNCTIONING WELL. ALL PRESCRIBED MEDICATION ADMINISTERED. SAFETY MEASURES IN PLACE: BED LOCKED AND IN LOWEST POSITION, SIDE RAILS UP x2, CALL LIGHT WITHIN REACH, HOB ELEVATED AND BEDSIDE TABLE WITHIN REACH. WILL CONTINUE TO MONITOR.
[2021-11-04 20:00] VITALS: BP 106/74
--- NOTE | 2021-11-04 20:19 | NUR ---
MS RN OPENING NOTES: RECEIVED PATIENT AWAKE IN BED, BE DIN LOW POSITION CALL LIGHTS WITHIN REACH, NO COMPLAIN OF PAIN AND DISCOMFORT AT THIS TIME ON NASAL CANNULA AT 2LPM SATURATING WELL, PATIENT WAS A/OX4 ON BED REST, WITH IV LINE AT [facility] , PATIENT KEPT CLEAN AND DRY ALL NEEDS MET WILL CONTINUE TO MONITOR.
[2021-11-05] MEDS: HYDROCORTISONE SOD SUCCINATE 100 MG/2 ML VIAL IV SCH ×2 (05:52→12:28)
[2021-11-05] MEDS: MEROPENEM 1 G in IV NS 0.9% 100 ML IV SCH ×2 (05:52→12:28)
[2021-11-05 06:59] LABS: BASOPHILS % (AUTO) 0.1 % (0.0-2.0); EOSINOPHILS % (AUTO) 0.1 % (0.0-6.0); HEMATOCRIT 31 % (39-51); HEMOGLOBIN 9.8 g/dL (13.5-17.5); LYMPHOCYTES # (AUTO) 0.6 K/uL (0.8-4.8); LYMPHOCYTES % (AUTO) 22.9 % (20.0-44.0); MEAN CORPUSCULAR HGB CONC 32 g/dl (31.0-36.0); MEAN CORPUSCULAR VOLUME 77 fL (80-96); MONOCYTES # (AUTO) 0.2 K/uL (0.1-1.30); MONOCYTES % (AUTO) 9.3 % (2.0-12.0); NEUTROPHILS # (AUTO) 1.7 K/uL (1.8-8.9); NEUTROPHILS % (AUTO) 67.6 % (43.0-81.0); PLATELET COUNT (AUTO) 649 K/uL (150-450); WHITE BLOOD COUNT (AUTO) 2.5 K/uL (4.3-11.0)
[2021-11-05] MEDS: LEVOTHYROXINE SODIUM 100 MCG TABLET PO SCH (07:20)
--- NOTE | 2021-11-05 07:45 | NUR ---
MS RN CLOSING NOTES: PATIENT SLEEP IN BED COMFORTABLY, BED IN LOW POSITION CALL LIGHTS WITHIN REACH, NO COMPLAIN OF PAIN AND DISCOMFORT AT THIS TIME,ON O2 INHALATION AT 2LPM SATURATING WELL, PATINE KEPT CLEAN AND DRY ALL NEEDS MET ENDORSE TO INCOMING SHIFT.
--- NOTE | 2021-11-05 07:46 | NUR ---
MS RN OPENING NOTES: RECEIVED PT IN BED ASLEEP EASILY AROUSED WITH STIMULI.A/O X4. NO SOB OR CARDIAC DISTRESS NOTED. ON O2 @2LPM VIA NC TOLERATING WELL. DENIES ANY PAIN AT THIS TIME. WITH IV ACCESS ON JAIMEE PICC LINE PATENT AND INTACT SALINE LOCKED. SAFETY PRECAUTIONS MAINTAINED: BED LOCKED AND IN LOWEST POSITION. SIDE RAILS UP X 2. CALL LIGHT IN EASY REACH. KEPT RESTED AND COMFORTABLE. WILL MONITOR ACCORDINGLY.
[2021-11-05 07:50] LABS: CALCIUM, SERUM 8.2 mg/dL (8.5-10.1); CREATININE 0.3 mg/dL (0.6-1.3); MAGNESIUM 2.2 mg/dL (1.8-2.4); PHOSPHORUS 2.6 mg/dL (2.5-4.9); POTASSIUM 3.3 mmol/L (3.5-5.1)
[2021-11-05 08:00] VITALS: BP 117/76
[2021-11-05] MEDS: FUROSEMIDE 20 MG TABLET PO SCH (09:20)
[2021-11-05] MEDS: CALCIUM CARBONATE (1250) 500 MG TABLET PO SCH (09:20)
[2021-11-05] MEDS: HYDROXYCHLOROQUINE 200 MG TABLET PO SCH (09:20)
[2021-11-05] MEDS: NYSTATIN (PYXIS) 500,000 UNIT/5 ML ORAL.SUSP PO SCH ×3 (09:20→17:21)
[2021-11-05] MEDS: LINEZOLID 600 MG TABLET PO SCH (09:20)
[2021-11-05] MEDS: ASCORBIC ACID 500 MG TABLET PO SCH (09:20)
[2021-11-05] MEDS: PANTOPRAZOLE 40 MG TABLET.DR PO SCH (09:20)
[2021-11-05] MEDS: MULTIVITAMINS,THERAGRAN 1 UDTAB TABLET PO SCH (09:20)
[2021-11-05] MEDS: ASPIRIN 81 MG TAB.CHEW PO SCH (09:20)
[2021-11-05] MEDS: MIDODRINE HCL (5MG) 5 MG TABLET PO SCH ×3 (09:22→17:00)
[2021-11-05] MEDS: THERAHONEY GEL 1.5 OZ TUBE TP SCH (09:25)
[2021-11-05] MEDS: MUPIROCIN OINT 2% 22 GM TUBE NS SCH (09:26)
[2021-11-05] MEDS ORDERED: POTASSIUM CHLORIDE 20 MEQ TAB.PRT.SR PO SCH (10:00)
--- NOTE | 2021-11-05 10:30 | NUR ---
RN NOTES: PATIENT ABLE TO AMBULATE, STABLE WITH NO SOB.
--- NOTE | 2021-11-05 11:00 | NUR ---
RN NOTES: SEEN AND EXAMINE BY DR HORN, CHECKED SACRAL WOUND AND APPLIED XEROFORM PACKING AND COVERED WITH MEFELEX.
[2021-11-05 16:00] VITALS: BP 140/80
[2021-11-05 17:00] VITALS: BP 140/88
--- NOTE | 2021-11-05 18:56 | NUR ---
MS RN CLOSING NOTES: PATIENT WILL BE DC TO SNF PT ALERT AND ORIENTED X 4 AND ABLE TO VERBALIZED NEEDS. NO SOB OR CARDIAC DISTRESS NOTED, AFEBRILE. DC PACKET SIGNED AND GIVEN TO PT/EMT. REPORT GIVEN TO KEVAN BUCHANAN. PT NOTED WITH LIFE VEST. WITH SACRAL WOUND DRESSING PATENT AND INTACT. KEPT THE IDENTIFICATION BAND ON AND IV ACCESS IN PLACE BECAUSE PT WILL CONTINUE IV ANTIBIOTICS IN THE FACILITY. BELONGINGS LIST SIGNED. RECEIVED CALL FROM VIKI, CIGAR PACKER AND PICKER WILL BE BETWEEN 8-830PM. ENDORSED TO TIPPLE REPAIRER NURSES FOR [facility].
--- NOTE | 2021-11-05 19:45 | NUR ---
MS RN OPENING NOTES: RECEIVED PT IN BED AA/O X4.ON O2 @2LPM VIA NC TOLERATING WELL.NO SIGN SOB/DISTRESS NOTED.BREATHING EVEN AND UNLABORED.WITH IV ACCESS ON JAIMEE PICC LINE PATENT AND INTACT SALINE LOCKED. SAFETY PRECAUTIONS MAINTAINED: BED LOCKED AND IN LOWEST POSITION. SIDE RAILS UP X 2. CALL LIGHT WITHIN REACH.WILL CONTINUE TO MONITOR.
--- NOTE | 2021-11-05 21:30 | NUR ---
RN NOTES; PT WAS PICK BY [facility].PT WAS STABLE NO SIGN SOB/DISTRESS NOTED.NO COMPLAINED OF PAIN/DISCOMFORT.V/S WITHIN NORMAL LIMITS.JAIMEE PICC LINE INTACT AND PATENT.NO BLEEDING,SWOLLEN,INFILTRATION NOTED.
[2021-11-06] MEDS ORDERED: MAG30ORA PO (07:19)
[2021-11-06] MEDS ORDERED: ZOLP5TAB8 PO (07:19)
[2021-11-06] MEDS ORDERED: ASPI-1169 PO (07:19)
[2021-11-06] MEDS ORDERED: MERO1VIA23 IV (07:19)
[2021-11-06] MEDS ORDERED: HYDR100V IV (07:19)
[2021-11-06] MEDS ORDERED: MUPI22OI7 NS (07:19)
[2021-11-06] MEDS ORDERED: LINE600T13 PO (07:19)
[2021-11-06] MEDS ORDERED: ONDA4VIA52 IVP (07:19)
[2021-11-06] MEDS ORDERED: THERAHONEY GEL TD (07:19)
[2021-11-06] MEDS ORDERED: ALLA266C2 TP (07:19)
== END 2021-11-05 21:30 | DRG 710 ==
LOC: ER 21:16 → ICU 10-30 00:31 → TELE 10-31 20:44 → MED 11-03 09:01
PROVIDERS: ADMIT Nurse Practitioner Acute Care; ATTEND Student in an Organized Health Care Education/Training Program
PROC: 0KBP0ZZ Excision of Left Hip Muscle, Open Approach (ICD-10-PCS; principal; 2021-10-30)
PROC: 0KBN0ZZ Excision of Right Hip Muscle, Open Approach (ICD-10-PCS; 2021-10-30)
PROC: 02HV33Z Insertion of Infusion Device into Superior Vena Cava, Percutaneous Approach (ICD-10-PCS; 2021-10-30)
PROC: B548ZZA Ultrasonography of Superior Vena Cava, Guidance (ICD-10-PCS; 2021-10-30)
PROC: 0W993ZZ Drainage of Right Pleural Cavity, Percutaneous Approach (ICD-10-PCS; 2021-11-02)
PROC: 0KBP0ZZ Excision of Left Hip Muscle, Open Approach (ICD-10-PCS; 2021-11-05)
PROC: 0KBN0ZZ Excision of Right Hip Muscle, Open Approach (ICD-10-PCS; 2021-11-05)
DX: A41.9 Sepsis, unspecified organism (principal); R65.21 Severe sepsis with septic shock; I50.31 Acute diastolic (congestive) heart failure; E44.0 Moderate protein-calorie malnutrition; R64 Cachexia; L89.154 Pressure ulcer of sacral region, stage 4; E87.1 Hypo-osmolality and hyponatremia; D63.8 Anemia in other chronic diseases classified elsewhere; D70.9 Neutropenia, unspecified; I95.9 Hypotension, unspecified; E88.09 Other disorders of plasma-protein metabolism, not elsewhere classified; I42.9 Cardiomyopathy, unspecified; J90 Pleural effusion, not elsewhere classified; I11.0 Hypertensive heart disease with heart failure; Z59.00 Homelessness unspecified; Z20.822 Contact with and (suspected) exposure to COVID-19; Z86.718 Personal history of other venous thrombosis and embolism; Z86.711 Personal history of pulmonary embolism; E03.9 Hypothyroidism, unspecified; Z79.899 Other long term (current) drug therapy; M32.9 Systemic lupus erythematosus, unspecified; E83.42 Hypomagnesemia; E87.6 Hypokalemia; L02.31 Cutaneous abscess of buttock; J98.11 Atelectasis; N40.0 Benign prostatic hyperplasia without lower urinary tract symptoms; T50.1X5A Adverse effect of loop [high-ceiling] diuretics, initial encounter; Y92.9 Unspecified place or not applicable
CPT/HCPCS: 36415; 71045-TC; 80048-TC; 80076-TC; 80202-TC; 82533; 82728-TC; 83540-TC; 83605-TC; 83615-TC; 83735-TC; 83880; 84100-TC; 84484-TC; 85025-TC; 85378-TC; 85730-TC; 87040-TC; 87070-TC; 87075-TC; 87081-TC; 87102-TC; 87186-TC; 89051-TC; 93307-TC; 94799-TC; A6403; A6407; C9803; G0378; J0696; J1720; J2185; J2916; J3370; J7030; J7040; J7050; J7060; Q9967

== ENCOUNTER 2021-11-06 05:19 | Emergency (ER) | payer OTHER ==
[~2021-11-06] VITALS: Ht 177.8 cm; Wt 53.1 kg
[~2021-11-06 05:19] MED LIST: ACET-2605 PO; ACET-868 PO; AMIN30LI2 PO; ASCO500T21 PO; CALC500T52 PO; CHOL100043 PO; COLL30OI TP; CYAN100096 PO; FERR325T23 PO; FURO20TA4 PO; HYDR-4303 PO; HYDR200T4 PO; LEVO100T9 PO; MAGN400O6 PO; METO-357 PO; MIDO10TA PO; MULT-24 PO; NYST5ORA MM; PANT40TA49 PO; SODI1TAB66 PO; ZINC220C6 PO
--- NOTE | 2021-11-06 05:25 | NUR ---
TERESO 39 FROM SNF FOR C/O MID- STERNAL CP X 1 MONTH. PATIENT IS AAOX4. CAME WITH PICC ON RIGHT UPPER ARM G18, WITH WEARABLE CARDIOVERTER DEFIBRILLATOR, WITH DRYNESS OF SKIN ALL OVER. PATIENT ATTACHED TO MONITOR. VITALS CHECKED.
--- NOTE | 2021-11-06 05:56 | NUR ---
XRAY DONE AT BEDSIDE.
[2021-11-06 06:14] LABS: BASOPHILS % (AUTO) 0.1 % (0.0-2.0); EOSINOPHILS % (AUTO) 1.2 % (0.0-6.0); HEMATOCRIT 31 % (39-51); HEMOGLOBIN 9.9 g/dL (13.5-17.5); LYMPHOCYTES # (AUTO) 0.7 K/uL (0.8-4.8); LYMPHOCYTES % (AUTO) 17.5 % (20.0-44.0); MEAN CORPUSCULAR HGB CONC 32 g/dl (31.0-36.0); MEAN CORPUSCULAR VOLUME 77 fL (80-96); MONOCYTES # (AUTO) 0.2 K/uL (0.1-1.30); MONOCYTES % (AUTO) 5.6 % (2.0-12.0); NEUTROPHILS # (AUTO) 2.8 K/uL (1.8-8.9); NEUTROPHILS % (AUTO) 75.6 % (43.0-81.0); PLATELET COUNT (AUTO) 645 K/uL (150-450); RED BLOOD CELL COUNT(AUTO) 3.98 MIL/uL (4.5-6.0); WHITE BLOOD COUNT (AUTO) 3.8 K/uL (4.3-11.0)
--- NOTE | 2021-11-06 06:19 | NUR ---
PRABHJOT SENT TO LAB
[2021-11-06 06:48] LABS: CALCIUM, SERUM 8.3 mg/dL (8.5-10.1); CARBON DIOXIDE 37 mmol/L (21-32); CHLORIDE 100 mmol/L (98-107); CREATININE 0.3 mg/dL (0.6-1.3); GLUCOSE 86 mg/dL (74-106); POTASSIUM 2.9 mmol/L (3.5-5.1); SODIUM SERUM 139 mmol/L (136-145); UREA NITROGEN, BLOOD 14 mg/dL (7-18)
[2021-11-06] MEDS ORDERED: MAG30ORA PO (07:19)
[2021-11-06] MEDS ORDERED: MERO1VIA23 IV (07:19)
[2021-11-06] MEDS ORDERED: HYDR100V IV (07:19)
[2021-11-06] MEDS ORDERED: ONDA4VIA52 IVP (07:19)
[2021-11-06] MEDS ORDERED: ASPI-1169 PO (07:19)
[2021-11-06] MEDS ORDERED: ALLA266C2 TP (07:19)
[2021-11-06] MEDS ORDERED: ZOLP5TAB8 PO (07:19)
[2021-11-06] MEDS ORDERED: MUPI22OI7 NS (07:19)
[2021-11-06] MEDS ORDERED: LINE600T13 PO (07:19)
[2021-11-06] MEDS ORDERED: THERAHONEY GEL TD (07:19)
--- NOTE | 2021-11-06 07:23 | NUR ---
REPORT GIVEN TO KEVAN CASTRO.
--- NOTE | 2021-11-06 07:26 | NUR ---
PT IS RESTING IN BED, EASILY AROUSABLE, AAOX4, VS STABLE.
[2021-11-06] MEDS ORDERED: POTASSIUM CHLORIDE 20 MEQ TAB.PRT.SR PO ONE ×2 (07:30→07:42)
--- NOTE | 2021-11-06 08:23 | NUR ---
SPOKE TO KINGSLEY SCOTT [phone] EDDY FROM [facility] WILL BE CALLING TO SPEAK TO DR CARR
[2021-11-06] MEDS ORDERED: ONDANSETRON HCL/PF 4 MG/2 ML VIAL IVP PRN (09:00)
[2021-11-06] MEDS ORDERED: MAGNESIUM HYDROXIDE 30 ML UDC PO PRN (09:00)
[2021-11-06] MEDS ORDERED: MAG HYDROX/AL HYDROX/SIMETH 30 ML UDC PO PRN (09:00)
[2021-11-06] MEDS ORDERED: POTASSIUM CHLORIDE 20 MEQ TAB.PRT.SR PO SCH (09:00)
[2021-11-06] MEDS ORDERED: Z GUARD REMEDY 4 OZ OINT TP PRN (09:00)
[2021-11-06] MEDS ORDERED: ACETAMINOPHEN 325 MG TABLET PO PRN (09:00)
[2021-11-06] MEDS ORDERED: ZOLPIDEM TARTRATE 5 MG TABLET PO PRN (09:00)
[2021-11-06] MEDS ORDERED: CARVEDILOL 6.25 MG TABLET PO SCH (09:00)
--- NOTE | 2021-11-06 09:10 | NUR ---
PT REFUSED POTASSIUM AT THIS TIME. SAYS WILL TAKE IT LATER. EXPLAINED TO PT RISKS OF FOREGOING POTASSIUM MEDICATION. VERBALIZED UNDERSTANDING.
[2021-11-06] MEDS ORDERED: IOHEXOL-350 100 ML VIAL IV ONE (09:25)
[2021-11-06] MEDS ORDERED: NITROGLYCERIN 0.4 MG/TAB BOTTLE ONE ×2 (09:26→09:43)
--- NOTE | 2021-11-06 09:39 | NUR ---
Pt taken to CT via jose
--- NOTE | 2021-11-06 09:40 | NUR ---
TYSHAWN ([id number]), PT GOING TO [facility] TRANSPORTATION: [facility] ([id number]) AUTH#: [id number] TYSHAWN TO CALL BACK FOR ETA.
[2021-11-06] MEDS ORDERED: METOPROLOL TARTRATE INJ 5 MG/5 ML AMPUL ONE ×2 (09:43→09:58)
[2021-11-06] MEDS ORDERED: CARVEDILOL 6.25 MG TABLET ONE (09:48)
[2021-11-06] MEDS: METOPROLOL TARTRATE INJ 5 MG/5 ML AMPUL IVP PRN ×4 (09:52→10:07)
[2021-11-06] MEDS ORDERED: NITROGLYCERIN 0.4 MG/TAB BOTTLE SL ONE (10:00)
--- NOTE | 2021-11-06 10:05 | NUR ---
Arnav schmitz in [facility] - 11/06/21 at 1006 by MAXINE [id number]
--- NOTE | 2021-11-06 10:16 | NUR ---
pt from ER consented to CTA heart; with zoll life vest in place; Dr Hannah aware, ok'd temporary removal of lifevest during CTA procedure. tolerated CT; given Metoprolol 5mg IVPx 4 doses only secondary to decreasing trend of SBP; sent back to ER
[2021-11-06 10:45] VITALS: BP 122/74
--- NOTE | 2021-11-06 10:52 | NUR ---
PT GOING TO ROOM 6114-2 NUMBER FOR REPORT [phone]
--- NOTE | 2021-11-06 11:03 | NUR ---
CALLED [facility] FOR TRNASPORT ETA [phone]
--- NOTE | 2021-11-06 12:06 | NUR ---
TROPONIN IS 114
--- NOTE | 2021-11-06 12:10 | NUR ---
NOTIFIED POWER LINE INSTALLER REGARDING PT TROP LEVELS AND WAS NOTIFIED THAT THE PT IS NOT ABLE TO TRANSFER TO [facility] DUE TO NOT BEING STABLE.
--- NOTE | 2021-11-06 12:12 | NUR ---
CANCELED TRANSPORT WITH [facility]
--- NOTE | 2021-11-06 12:20 | NUR ---
CALLED RELAY TECHNICIAN AND WAS NOTIED OF PT CURRENT STABLE STATUS.
--- NOTE | 2021-11-06 12:26 | NUR ---
RAPID COVID-19 SPECIMEN TAKEN.
--- NOTE | 2021-11-06 12:34 | NUR ---
NEW ETA FOR TRANSPORT [id number]
--- NOTE | 2021-11-06 15:55 | NUR ---
[facility], NUMBER TO GIVE REPORT [phone] EXT [phone]. PRIMARY RN AWARE.
--- NOTE | 2021-11-06 16:45 | NUR ---
rn notes patient going to filler picker at this time with ambulance personnels going to the [facility]. patient stable, vss, refused pain. report given Alyssia MATHUR. RN verbalized understanding. belonging with the ptient.
== END 2021-11-06 18:04 | disposition short-term general hospital (02) ==
LOC: ER 05:23
DX: R07.9 Chest pain, unspecified (principal); R64 Cachexia; Z68.1 Body mass index [BMI] 19.9 or less, adult; D53.9 Nutritional anemia, unspecified; Z20.822 Contact with and (suspected) exposure to COVID-19; E03.9 Hypothyroidism, unspecified; Z86.718 Personal history of other venous thrombosis and embolism; I95.9 Hypotension, unspecified; E87.6 Hypokalemia; R94.31 Abnormal electrocardiogram [ECG] [EKG]; Z86.711 Personal history of pulmonary embolism; I50.9 Heart failure, unspecified; J90 Pleural effusion, not elsewhere classified
CPT/HCPCS: 99285; 96374; 75574; 71045; 87426; 85025; 80048; 36415; 84484 ×2; 87081; 93005; J3490 ×2; Q9967; C9803